=== PATIENT | male | born 1995 | race African-American/Black ===

== ENCOUNTER 2019-08-11 13:18 | Emergency (ER) | payer SELFPAY ==
[~2019-08-11] VITALS: Ht 175.3 cm; Wt 63.5 kg
[2019-08-11 14:28] VITALS: BP 145/68
--- NOTE | 2019-08-11 15:20 | PHYS DOC ---
Past Medical History Past Medical History: No Pertinent History (HELEN BOYKIN APRN) Past Surgical History: No Surgical History (HELEN BOYKIN APRN) Alcohol Use: Occasionally Drug Use: Marijuana (HELEN BOYKIN APRN) Adult General Chief Complaint Chief Complaint: FEVER HPI HPI Patient is a 24 year old male who presents with states he has had fever and random aches and pains and a sore throat but mostly when he turns his neck and night sweats for the last week. Patient states he is actually feeling much better today and has not taken anything and has not been running a fever. Patient states that earlier this month he was tested for HIV and it was negative. Rates his pain at a 5 out of 10 at this time. (HELEN BOYKIN APRN) Review of Systems Review of Systems Constitutional: fever, night sweats or chills [] HENT: Denies nasal congestion. +sore throat [] Musculoskeletal: Random body pains. Denies back pain or joint pain [] All other systems were reviewed and found to be within normal limits, except as documented in this note. (HELEN BOYKIN APRN) Allergies Allergies Allergies Coded Allergies Type Severity Reaction Last Updated Verified No Known Drug Allergies 08/11/19 No (RAGINI LAYTON MD) Physical Exam Physical Exam Constitutional: Well developed, well nourished, no acute distress, non-toxic appearance. [] HENT: Normocephalic, atraumatic, bilateral external ears normal, oropharynx moist, no oral exudates, nose normal. [] Eyes: PERRLA, EOMI, conjunctiva normal, no discharge. [] Neck: Normal range of motion, no tenderness, supple, no stridor. [] Cardiovascular:Heart rate regular rhythm, no murmur [] Lungs & Thorax: Bilateral breath sounds clear to auscultation [] Abdomen: Bowel sounds normal, soft, no tenderness, no masses, no pulsatile masses. [] Skin: Warm, dry, no erythema, no rash. [] Back: No tenderness, no CVA tenderness. [] Extremities: No tenderness, no cyanosis, no clubbing, ROM intact, no edema. [] Neurologic: Alert and oriented X 3, normal motor function, normal sensory function, no focal deficits noted. [] Psychologic: Affect normal, judgement normal, mood normal. Normal Physical exam[] (HELEN BOYKIN APRN) Current Patient Data Vital Signs Vital Signs Date Time Temp Pulse Resp B/P (MAP) Pulse Ox O2 Delivery O2 Flow Rate FiO2 08/11/19 14:28 98.6 70 18 145/68 (93) 98 Room Air 98.6 (RAGINI LAYTON MD) EKG EKG [] (HELEN BOYIKN APRN) Radiology/Procedures Radiology/Procedures [] (HELEN BOYKIN APRN) Course & Med Decision Making Course & Med Decision Making Abdomen soft and nontender. Patient denies nausea, vomiting, diarrhea, chest pain, shortness of air, cough. Alert and oriented. Skin pink warm and dry. Ambulatory with a steady gait. Throat is pink, nonswollen and there are no exudates. Ambulatory with a steady gait. Lungs are clear to auscultation in all lobes. Bilateral tympanic membranes are pearly white. Patient states that he was thinking maybe his hormones to be checked. Patient is told that we don't check hormones in the emergency room but he would have to follow up with a doctor and was given him a pamphlet to find a physician. 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 (HELEN BOYKIN APRN) Course & Med Decision Making Staff Physician Addendum: I was working in the ER during the course of this patient's visit. I was available for consultation as needed, but I was not directly involved in the care of this patient. (RAGINI LAYTON MD) Dragon Disclaimer Dragon Disclaimer This electronic medical record was generated, in whole or in part, using a voice recognition dictation system. (HELEN BOYKIN APRN) Departure Departure Impression: Primary Impression: Encounter for medical screening examination Disposition: HOME, SELF-CARE Condition: STABLE Referrals: NO PCP (PCP) HELEN BOYKIN APRN Aug 11, 2019 15:20 RAGINI LAYTON MD Aug 12, 2019 06:17
== END 2019-08-11 15:14 | disposition home or self-care (01) ==
LOC: ER 13:18
DX: R50.9 Fever, unspecified (principal); J02.9 Acute pharyngitis, unspecified; M79.18 Myalgia, other site; R61 Generalized hyperhidrosis
CPT/HCPCS: 99281